=== PATIENT | male | born 1990 | race Caucasian/White ===

== ENCOUNTER 2016-12-08 21:33 | Emergency (ER) | payer OTHER ==
[2016-12-08] MEDS ORDERED: diphenhydrAMINE 50 MG/ML SDV IVPUSH ONE (21:39)
[2016-12-08] MEDS ORDERED: EPINEPHrine 1:1000 1 MG/ML SDV IM ONE (21:39)
[2016-12-08] MEDS ORDERED: methylPREDNISolone Sodium Succinate 125 MG/2 ML SDV IVPUSH ONE (21:40)
[2016-12-08] MEDS: Sodium Chloride 0.9% 10 ML Syringe FLUSH PRN ×3 (22:04→22:07)
[2016-12-09 00:37] VITALS: BP 130/62
--- NOTE | 2016-12-09 00:44 | EDM.PDOC ---
ED HPI GENERAL MEDICAL PROBLEM - General Chief Complaint: Allergic Reaction Stated Complaint: allergic reaction Time Seen by Provider: 12/08/16 21:56 Source of Information: Reports: Patient History Limitations: Reports: No Limitations - History of Present Illness INITIAL COMMENTS - FREE TEXT/NARRATIVE: This patient comes in with an acute allergic reaction with swelling of his face shortly after eating a pizza that had some Seafood and it. He denies any shortness of breath or tightness in the throat. back Pain Score (Numeric/FACES): 6 - Related Data Allergies Allergy/AdvReac Type Severity Reaction Status Date / Time cat dander Allergy Anaphylactic Verified 12/08/16 21:49 Shock ragweed pollen Allergy Anaphylactic Verified 12/08/16 21:49 Shock Home Meds: Home Meds Ibuprofen 800 mg PO Q4H PRN 12/22/15 [History] Loratadine [Claritin] 10 mg PO DAILY PRN 12/22/15 [History] diphenhydrAMINE [Benadryl] 50 mg PO Q6H PRN 12/22/15 [History] Past Medical History HEENT History: Reports: Allergic Rhinitis Musculoskeletal History: Reports: Back Pain, Chronic Social & Family History - Tobacco Use Smoking Status *Q: Never Smoker Second Hand Smoke Exposure: No - Caffeine Use Caffeine Use: Reports: Coffee, Energy Drinks, Soda, Tea - Alcohol Use Days Per Week of Alcohol Use: 0 - Recreational Drug Use Recreational Drug Use: No ED ROS ALLERGIC REACTION - Review of Systems Review Of Systems: ROS reveals no pertinent complaints other than HPI. ED EXAM GENERAL NO PERIP PULSE - Physical Exam Exam: See Below Exam Limited By: No Limitations General Appearance: Alert, WD/WN, Moderate Distress Eye Exam: Bilateral Eye: Conjunctival Injection Ears: Normal External Exam Nose: Normal Inspection Throat/Mouth: Other (Swelling of upper and lower lips. No airway compromise. No pharyngeal edema.) Head: Atraumatic Neck: Normal Inspection Respiratory/Chest: Lungs Clear Cardiovascular: Regular Rate, Rhythm, No Murmur GI/Abdominal: Non-Tender Extremities: Normal Inspection Neurological: Alert, Oriented Psychiatric: Normal Affect Skin Exam: Warm, Dry, Erythema Course - Vital Signs Last Recorded V/S: Last Vital Signs Temp 36.3 C 12/08/16 21:55 Pulse 72 12/08/16 22:36 Resp 16 12/08/16 21:55 BP 130/62 12/08/16 22:36 Pulse Ox 90 L 12/08/16 22:36 - Orders/Labs/Meds Orders: Active Orders 24 hr Category Date Time Status Saline Lock Insert [OM.PC] Urgent Oth 12/08/16 21:40 Ordered Meds: Medications Discontinued Medications Generic Name Dose Route Start Last Admin Trade Name Jaqueline PRN Reason Stop Dose Admin Diphenhydramine HCl 50 mg 12/08/16 21:39 12/08/16 22:05 Benadryl IVPUSH 12/08/16 21:40 50 mg ONETIME ONE Administration Epinephrine HCl 0.3 mg 12/08/16 21:39 12/08/16 22:03 Adrenalin 1:1000 IM 12/08/16 21:40 0.3 mg ONETIME ONE Administration Methylprednisolone Sodium Succinate 125 mg 12/08/16 21:40 12/08/16 22:06 Solu-Medrol IVPUSH 12/08/16 21:41 125 mg ONETIME ONE Administration Sodium Chloride 10 ml 12/08/16 21:40 12/08/16 22:07 Saline Flush FLUSH 10 ml ASDIRECTED PRN Administration Keep Vein Open - Re-Assessments/Exams Free Text/Narrative Re-Assessment/Exam: 12/09/16 06:54 This patient received epinephrine 0.3 mg IM, Solu-Medrol 125 IV, Benadryl 50 mg IV. He was observed here in the ER and his signs and symptoms resolved steadily over the next hour. 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 Also take prednisone 40 mg daily for the next 5 days. You are probably allergic to any kind of seafood or iodide. This might include IV dye. If you have more problems with reactions than return to the ER. - My Orders Last 24 Hours: My Active Orders 12/08/16 21:40 Saline Lock Insert [OM.PC] Urgent - Assessment/Plan Last 24 Hours: My Active Orders 12/08/16 21:40 Saline Lock Insert [OM.PC] Urgent
== END 2016-12-09 01:02 | disposition home or self-care (01) ==
LOC: JP.ED 21:33
DX: T78.3XXA Angioneurotic edema, initial encounter (principal); Z91.048 Other nonmedicinal substance allergy status; Z79.899 Other long term (current) drug therapy; Z91.013 Allergy to seafood
CPT/HCPCS: J0171; J1200; J2930; J7050; 96372; 96374; 96375; 99283; 99283-25

== ENCOUNTER 2017-08-16 18:51 | Emergency (ER) | payer OTHER ==
[2017-08-16 19:06] VITALS: BP 133/87
[2017-08-16] MEDS ORDERED: EPINEPHrine 1 MG/ML SDV IM ONE (19:23)
[2017-08-16] MEDS ORDERED: methylPREDNISolone Sodium Succinate 125 MG/2 ML SDV IM ONE (19:23)
--- NOTE | 2017-08-16 19:27 | EDM.PDOC ---
ED HPI GENERAL MEDICAL PROBLEM - General Chief Complaint: Allergic Reaction Stated Complaint: ALERGIC REACTION Time Seen by Provider: 08/16/17 19:22 Source of Information: Reports: Patient, Family, RN Notes Reviewed History Limitations: Reports: No Limitations - History of Present Illness INITIAL COMMENTS - FREE TEXT/NARRATIVE: 26-year-old gentleman presents to the emergency department today with an allergic reaction, he has had an allergic reaction in the past secondary to seafood he does carry an EpiPen. For this particular event unsure of the trigger he did eat a nectarine prior and then rubbed his eyes immediately after rubbing his eyes he developed a rash and facial swelling. He denies any shortness of breath or difficulty swallowing. - Related Data Allergies Allergy/AdvReac Type Severity Reaction Status Date / Time cat dander Allergy Severe Anaphylactic Verified 08/16/17 19:09 Shock ragweed pollen Allergy Severe Anaphylactic Verified 08/16/17 19:09 Shock seafood Allergy Anaphylactic Uncoded 12/11/16 09:13 Shock Home Meds: Home Meds Ibuprofen 800 mg PO Q4H PRN 12/22/15 [History] Past Medical History HEENT History: Reports: Allergic Rhinitis Musculoskeletal History: Reports: Back Pain, Chronic Social & Family History - Tobacco Use Smoking Status *Q: Never Smoker Second Hand Smoke Exposure: No - Caffeine Use Caffeine Use: Reports: Coffee, Energy Drinks - Alcohol Use Days Per Week of Alcohol Use: 0 - Recreational Drug Use Recreational Drug Use: No ED ROS ALLERGIC REACTION - Review of Systems Review Of Systems: See Below Constitutional: Reports: No Symptoms HEENT: Reports: No Symptoms Respiratory: Reports: No Symptoms Cardiovascular: Reports: No Symptoms GI/Abdominal: Reports: No Symptoms Musculoskeletal: Reports: No Symptoms Skin: Reports: Rash, Urticaria ED EXAM GENERAL NO PERIP PULSE - Physical Exam Exam: See Below (While the patient's her memory or) Exam Limited By: No Limitations General Appearance: Alert, No Apparent Distress Eye Exam: Bilateral Eye: Normal Inspection, Other (Edema over both eyelids) Ears: Normal External Exam, Other Throat/Mouth: Normal Inspection, Normal Lips, Normal Teeth, Normal Gums, Normal Oropharynx, Normal Voice, No Airway Compromise Head: Atraumatic, Normocephalic Neck: Normal Inspection, Supple, Non-Tender, Full Range of Motion Respiratory/Chest: No Respiratory Distress, Lungs Clear, Normal Breath Sounds, No Accessory Muscle Use Cardiovascular: Regular Rate, Rhythm, No Murmur Skin Exam: Warm, Rash, Other (Hives) Course - Vital Signs Last Recorded V/S: Last Vital Signs Temp 97.2 F 08/16/17 19:04 Pulse 55 L 08/16/17 19:04 Resp 16 08/16/17 19:04 BP 133/87 08/16/17 19:04 Pulse Ox 99 08/16/17 19:04 - Orders/Labs/Meds Meds: Medications Discontinued Medications Generic Name Dose Route Start Last Admin Trade Name Jaqueline PRN Reason Stop Dose Admin Epinephrine HCl 0.3 mg 08/16/17 19:23 08/16/17 19:26 Adrenalin IM 08/16/17 19:24 0.3 mg ONETIME ONE Administration Methylprednisolone Sodium Succinate 125 mg 08/16/17 19:23 08/16/17 19:25 Solu-Medrol IM 08/16/17 19:24 125 mg ONETIME ONE Administration Departure - Departure Time of Disposition: 21:30 Disposition: Home, Self-Care 01 Condition: Good Clinical Impression: Allergic reaction Qualifiers: Encounter type: initial encounter Qualified Code(s): T78.40XA - Allergy, unspecified, initial encounter - Discharge Information Referrals: Al Munguia MD [Primary Care Provider] - Forms: ED Department Discharge Additional Instructions: Her EpiPen if needed, continue to use Benadryl as needed for symptomatic relief, Please followup with your primary care provider in 3-5 days if not better, please call return to the emergency department with worsening of symptoms. - Assessment/Plan Plan: Assessment Acuity = acute Site and laterality = allergic reaction Etiology = unclear etiology Manifestations = none Location of injury = Home Lab values = none Plan Good improvement combination Solu-Medrol and epinephrine he does have an EpiPen at home continue to use that as needed as well as Benadryl follow-up with primary care 3-5 days if no improvement This note was dictated using [employer] voice recognition software please call with any questions on syntax or kris.
== END 2017-08-16 21:37 | disposition home or self-care (01) ==
LOC: JP.ED 18:51
DX: T78.1XXA Other adverse food reactions, not elsewhere classified, initial encounter (principal); R60.9 Edema, unspecified; Z91.048 Other nonmedicinal substance allergy status; Z91.013 Allergy to seafood
CPT/HCPCS: 96372; 99283; J0171; J2930

== ENCOUNTER 2022-05-10 13:38 | Emergency (ER) | payer OTHER ==
[2022-05-10 13:54] VITALS: BP 96/62; PULSE 123
[2022-05-10] MEDS ORDERED: methylPREDNISolone Sodium Succinate 125 MG/2 ML SDV IVPUSH ONE (14:29)
[2022-05-10] MEDS ORDERED: diphenhydrAMINE 50 MG/ML SDV IVPUSH ONE (14:29)
[2022-05-10 14:57] LABS: CORONAVIRUS COVID-19 NAA NEGATIVE (NEGATIVE)
[2022-05-10] MEDS ORDERED: EPINEPHrine 1 MG/ML SDV IM ONE (16:27)
== END 2022-05-10 16:00 | disposition home or self-care (01) ==
LOC: JP.ED 13:38
DX: T78.40XA Allergy, unspecified, initial encounter (principal); Z20.822 Contact with and (suspected) exposure to COVID-19; Z88.8 Allergy status to other drugs, medicaments and biological substances
CPT/HCPCS: 0241U; 96372; 96374; 96375; 99283; J0171; J1200; J2930

== ENCOUNTER 2023-04-23 06:04 | Emergency (ER) | payer OTHER ==
[2023-04-23] MEDS ORDERED: Albuterol/Ipratropium 3.0-0.5 MG/3 ML Neb Soln NEB ONE (06:07)
[2023-04-23] MEDS ORDERED: methylPREDNISolone Sodium Succinate 125 MG/2 ML SDV IVPUSH ONE (06:14)
[2023-04-23 06:18] LABS: BASE EXCESS VENOUS 2.6 mm/L; BICARBONATE,VENOUS 30.1 mmol/L; CARBOXYHEMOGLOBIN 1.2 % (0.0-1.6); METHEMOGLOBIN 0.9 %; O2 SATURATION VENOUS 38.4; OXYHEMOGLOBIN 37.6 %; PCO2 VENOUS 58.6 mm/Hg; PH,VENOUS 7.331 (7.350-7.450); PO2 VENOUS 26.6 mm/Hg; TOTAL HEMOGLOBIN 17.2 g/dL (13.5-18.0)
[2023-04-23 06:23] LABS: BASOPHILS ABSOLUTE AUTO 0.11 K/uL (0.00-0.10); BASOPHILS PERCENT AUTO 1.5 % (0.1-1.3); EOSINOPHILS PERCENT AUTO 9.8 % (0.0-5.4); HEMATOCRIT 48.8 % (38.4-49.7); HEMOGLOBIN 16.8 g/dL (12.9-16.9); IMMATURE GRAN PERCENT AUTO 0.1 % (0.0-0.7); LYMPHOCYTES ABSOLUTE AUTO 2.92 K/uL (0.8-3.3); LYMPHOCYTES PERCENT AUTO 41.1 % (11.4-47.7); MEAN CORPUSCULAR HEMOGLOBIN 32.2 pg (31.6-35.5); MEAN CORPUSCULAR HGB CONC 34.4 g/dL (31.6-35.5); MEAN CORPUSCULAR VOLUME 93.7 fL (81.4-99.0); MONOCYTES ABSOLUTE AUTO 0.58 K/uL (0.20-0.90); MONOCYTES PERCENT AUTO 8.2 % (3.3-12.6); NEUTROPHILS ABSOLUTE AUTO 2.79 K/uL (1.0-7.6); NEUTROPHILS PERCENT AUTO 39.3 % (40.0-78.1); PLATELET COUNT,PLT 309 K/uL (130-375); RED BLOOD CELL COUNT 5.21 M/uL (4.14-5.76); WHITE BLOOD CELL COUNT,WBC 7.1 K/uL (3.2-11.0)
[2023-04-23 06:24] LABS: IMMATURE GRAN ABSOLUTE AUTO 0.01 K/uL (0.00-0.23)
[2023-04-23 06:26] VITALS: BP 131/75; PULSE 91
[2023-04-23 06:38] LABS: ANION GAP 10.2 mmol/L (5.0-14.0); C-REACTIVE PROTEIN 0.12 mg/dL (0.0-0.3); CREATININE 1.1 mg/dL (0.8-1.3); EST CRCL DRUG DOSING (CG) 102.68 mL/min; POTASSIUM,K 4.1 mmol/L (3.6-5.2)
[2023-04-23 06:57] LABS: CORONAVIRUS COVID-19 NAA NEGATIVE (NEGATIVE); INFLUENZA A NAA NEGATIVE (NEGATIVE); INFLUENZA B NAA NEGATIVE (NEGATIVE); RESPIRATORY SYNCYTIAL VIR NAA NEGATIVE (NEGATIVE)
== END 2023-04-23 07:22 | disposition home or self-care (01) ==
LOC: JP.ED 06:04
DX: J45.909 Unspecified asthma, uncomplicated (principal); Z20.822 Contact with and (suspected) exposure to COVID-19; Z79.899 Other long term (current) drug therapy; Z91.018 Allergy to other foods; Z91.048 Other nonmedicinal substance allergy status
CPT/HCPCS: 0241U; 36415; 71046; 71046-26; 80048; 82803; 84145; 85025; 86140; 94640; 96374; 99283; 99285-25; J2930; J7620

== ENCOUNTER 2023-05-26 09:10 | Emergency (ER) | payer OTHER ==
[2023-05-26] MEDS ORDERED: Acetaminophen 500 MG Tab PO ONE (10:10)
[2023-05-26 10:19] LABS: BASOPHILS ABSOLUTE AUTO 0.03 K/uL (0.00-0.10); BASOPHILS PERCENT AUTO 0.3 % (0.1-1.3); EOSINOPHILS ABSOLUTE AUTO 0.28 K/uL (0.00-0.40); EOSINOPHILS PERCENT AUTO 2.8 % (0.0-5.4); HEMATOCRIT 40.1 % (38.4-49.7); HEMOGLOBIN 13.6 g/dL (12.9-16.9); IMMATURE GRAN PERCENT AUTO 0.2 % (0.0-0.7); LYMPHOCYTES ABSOLUTE AUTO 1.51 K/uL (0.8-3.3); LYMPHOCYTES PERCENT AUTO 14.9 % (11.4-47.7); MEAN CORPUSCULAR HEMOGLOBIN 32.4 pg (31.6-35.5); MEAN CORPUSCULAR HGB CONC 33.9 g/dL (31.6-35.5); MEAN CORPUSCULAR VOLUME 95.5 fL (81.4-99.0); MONOCYTES ABSOLUTE AUTO 0.78 K/uL (0.20-0.90); MONOCYTES PERCENT AUTO 7.7 % (3.3-12.6); NEUTROPHILS ABSOLUTE AUTO 7.53 K/uL (1.0-7.6); NEUTROPHILS PERCENT AUTO 74.1 % (40.0-78.1); PLATELET COUNT,PLT 246 K/uL (130-375); WHITE BLOOD CELL COUNT,WBC 10.2 K/uL (3.2-11.0)
[2023-05-26 10:21] LABS: BASE EXCESS VENOUS 2.3 mm/L; BICARBONATE,VENOUS 26.8 mmol/L; CARBOXYHEMOGLOBIN 1.9 % (0.0-1.6); IMMATURE GRAN ABSOLUTE AUTO 0.02 K/uL (0.00-0.23); O2 SATURATION VENOUS 48.1; OXYHEMOGLOBIN 46.7 %; PCO2 VENOUS 42.9 mm/Hg; PH,VENOUS 7.412 (7.350-7.450); TOTAL HEMOGLOBIN 14.2 g/dL (13.5-18.0)
[2023-05-26 10:23] LABS: PO2 VENOUS 27.3 mm/Hg
[2023-05-26 10:45] LABS: ALANINE AMINOTRANSFERASE,ALT 29 U/L (12-78); ALBUMIN 3.6 g/dL (3.4-5.0); ALKALINE PHOSPHATASE 84 U/L (46-116); ANION GAP 8.3 mmol/L (5.0-14.0); ASPARTATE AMNIOTRANSFERASE,AST 22 U/L (15-37); BILIRUBIN TOTAL 0.9 mg/dL (0.2-1.0); BLOOD UREA NITROGEN,BUN 12 mg/dL (7-18); CALCIUM 8.3 mg/dL (8.5-10.1); CARBON DIOXIDE,CO2 28 mmol/L (21-32); CHLORIDE,CL 105 mmol/L (100-108); EST CRCL DRUG DOSING (CG) 112.95 mL/min; ESTIMATED GFR 103 mL/min (>60); GLUCOSE RANDOM 97 mg/dL (74-106); POTASSIUM,K 3.9 mmol/L (3.6-5.2); PROTEIN TOTAL,TP 7.3 g/dL (6.4-8.2); SODIUM,NA 141 mmol/L (140-148)
[2023-05-26 10:59] LABS: CORONAVIRUS COVID-19 NAA NEGATIVE (NEGATIVE); INFLUENZA A NAA NEGATIVE (NEGATIVE); INFLUENZA B NAA NEGATIVE (NEGATIVE); RESPIRATORY SYNCYTIAL VIR NAA NEGATIVE (NEGATIVE)
[2023-05-26] MEDS ORDERED: cefTRIAXone 500 MG, Lidocaine 1% 1 ML IM ONE ×2 (12:22)
[2023-05-26 12:37] VITALS: BP 115/64; PULSE 76
== END 2023-05-26 13:39 | disposition home or self-care (01) ==
LOC: JP.ED 09:10
DX: N45.1 Epididymitis (principal); J40 Bronchitis, not specified as acute or chronic; J45.909 Unspecified asthma, uncomplicated; Z91.048 Other nonmedicinal substance allergy status; Z91.018 Allergy to other foods; Z79.899 Other long term (current) drug therapy; Z20.822 Contact with and (suspected) exposure to COVID-19
CPT/HCPCS: 0241U; 36415; 71046; 76870; 80053; 82803; 84145; 85025; 93976; 96372; 99284; A9270; J0696